=== PATIENT | male | born 1990 | race Native Hawaiian/Other Pacific Islander ===

== ENCOUNTER 2019-08-23 11:29 | Emergency (ER) | payer SELFPAY ==
[2019-08-23] MEDS ORDERED: PENICILLIN VK 250 MG TABLET PO STA (13:44)
[2019-08-23] MEDS ORDERED: IBUPROFEN 800 MG TABLET PO STA (13:44)
--- NOTE | 2019-08-23 13:46 | ED Physician Documentation ---
History of Present Illness - Stated complaint Stated Complaint: tooth pain - Chief complaint Chief Complaint: Heent - History obtained from History obtained from: Patient - History of Present Illness Timing: How many days ago (3) Pain level max: 7 Pain level now: 5 - Additonal information Additional information: Left lower dental pain for the past few days. He is visiting from [place]. Returns home. Worse with eating and drinking. No fevers. No difficulty speaking or swallowing. Better with Tylenol Review of Systems Constitutional: denies: Fever GI: denies: Vomiting Musculoskeletal: denies: Neck pain Neurologic: denies: Headache PD PAST MEDICAL HISTORY - Past Medical History Past Medical History: No - Past Surgical History Past Surgical History: No - Present Medications Home Medications: Ambulatory Orders Medication Instructions Recorded Confirmed Ibuprofen [Motrin] 800 mg PO Q8H PRN #30 tablet 08/23/19 Penicillin V Potassium 500 mg PO Q6HR #40 tablet 08/23/19 - Allergies Allergies/Adverse Reactions: Allergies Allergy/AdvReac Type Severity Reaction Status Date / Time No Known Drug Allergies Allergy Verified 08/23/19 11:34 - Social History Does the pt smoke?: Yes Smoking Status: Current every day smoker Does the pt drink ETOH?: Yes Does the pt have substance abuse?: No - Immunizations Immunizations are current?: Yes - POLST Patient has POLST: No PD ED PE NORMAL - Vitals Vital signs reviewed: Yes - General General: Alert and oriented X 3, No acute distress - HEENT HEENT: Moist mucous membranes, Other (Poor dentition throughout, mild swelling to the left lower jaw. No drainable abscess. No fluctuance. Normal phonation. No trismus.) - Neck Neck: Supple, no meningeal sign - Derm Derm: Warm and dry - Neuro Neuro: Alert and oriented X 3 Results - Vitals Vitals: Vital Signs - 24 hr 08/23/19 11:35 Temperature 36.8 C Heart Rate 80 Respiratory 16 Rate Blood Pressure 148/81 H O2 Saturation 100 Oxygen O2 Source Room air PD MEDICAL DECISION MAKING - ED course Complexity details: considered differential, d/w patient ED course: Patient with dental caries without abscess. No facial cellulitis. We will place on him on antibiotics. Patient is well-appearing, nontoxic. Afebrile. Normal phonation. No trismus. No Ludewig's angina, Patient counseled regarding signs and symptoms for which I believe and urgent re-evaluation would be necessary. Patient with good understanding of and agreement to plan and is comfortable going home at this time This document was made in part using voice recognition software. While efforts are made to proofread this document, sound alike and grammatical errors may occur. Departure - Departure Disposition: Home, Self Care Clinical Impression: Pain due to dental caries Condition: Good Instructions: ED Tooth Pain Follow-Up: Your,dentist within 1 week [Other] Prescriptions: Penicillin V Potassium 500 mg PO Q6HR #40 tablet Ibuprofen [Motrin] 800 mg PO Q8H PRN #30 tablet PRN Reason: PAIN &/OR FEVER Comments: Take all antibiotics until gone. Follow-up with your dentist this week. Return if you worsen.
[2019-08-23 13:50] VITALS: BP 143/92
== END 2019-08-23 13:53 | disposition home or self-care (01) ==
LOC: ED 11:29
DX: K02.9 Dental caries, unspecified (principal); F17.200 Nicotine dependence, unspecified, uncomplicated
CPT/HCPCS: 99282; 99284; A9270